=== PATIENT | male | born 1955 | race Caucasian/White ===

== ENCOUNTER 2021-10-25 09:17 | Outpatient (CLI) | payer MEDICARE, MEDICAID ==
[2021-10-25 10:23] LABS: Estimated GFR-MDRD - POC Greater than 90
== END 2021-10-25 09:18 | disposition home or self-care (01) ==
LOC: CSHCT 09:17
PROVIDERS: ATTEND Internal Medicine Cardiovascular Disease
DX: I48.20 Chronic atrial fibrillation, unspecified (principal); R29.6 Repeated falls
CPT/HCPCS: 71275; 82565

== ENCOUNTER 2023-07-10 10:21 | Outpatient (CLI) | payer OTHER, MEDICAID | END 2023-07-10 10:22 | disposition home or self-care (01) | LOC: CSHMRI 10:21 | PROVIDERS: ATTEND Neurological Surgery | DX: M54.50 Low back pain, unspecified (principal); M47.817 Spondylosis without myelopathy or radiculopathy, lumbosacral region | CPT/HCPCS: 72148 ==